=== PATIENT | male | born 1980 | race Caucasian/White ===

== ENCOUNTER → 2020-06-26 15:36 | Outpatient (BNVA) | payer MEDICAID, SELFPAY | PROVIDERS: PCP Internal Medicine; Referring Provider Internal Medicine; Visit Provider Surgery | DX: E66.01 Morbid (severe) obesity due to excess calories (principal); I10 Essential (primary) hypertension; Z68.43 Body mass index [BMI] 50.0-59.9, adult; Z98.84 Bariatric surgery status; Z71.3 Dietary counseling and surveillance | CPT/HCPCS: 99214 ==

== ENCOUNTER 2020-07-02 16:27 | Outpatient (REF) | payer MEDICAID, SELFPAY ==
[2020-07-07 11:41] LABS: Cotinine, U <2 ng/mL; Nicotine, U <2 ng/mL
== END 2020-07-02 16:28 | disposition home or self-care (01) ==
LOC: HO.LAB 16:27
PROVIDERS: PCP Internal Medicine; Visit Provider Surgery
DX: Z87.891 Personal history of nicotine dependence (principal)
CPT/HCPCS: 80323

== ENCOUNTER → 2020-07-06 15:07 | Outpatient (BNVA) | payer MEDICAID, SELFPAY | PROVIDERS: PCP Hospitalist; Referring Provider Hospitalist; Visit Provider Surgery | DX: E66.01 Morbid (severe) obesity due to excess calories (principal); Z68.43 Body mass index [BMI] 50.0-59.9, adult; Z71.3 Dietary counseling and surveillance | CPT/HCPCS: 99214 ==

== ENCOUNTER 2020-08-14 13:00 | Outpatient (RCR) | payer MEDICAID, SELFPAY ==
--- NOTE | 2020-07-10 13:59 | MHC.PT.EP ---
[facility] [place] Office [place] Office [place] Office [address] [phone] F: [phone] F: [phone] F: [phone] F: [phone] Physical Therapy Plan of Care Date of Evaluation: 07/10/20 Date of Surgery: NA Diagnosis: Other malaise: pain in unspecified knee physical deconditioning Assessment: 39 y/o male referred to PT from weight management program with 'other malaise' and 'pain in unspecified knee. He feels limited in walking on uneven terrain and ascending/descending stairs. Examination shows decreased L hip/knee strength, decreased B knee flexion AOM, decreased L HS/gastroc/quad length, noted hypmobility L medial HS soft tissue, and impaired gait pattern. Recommend PT 2x/week for 4 weeks to address impairments, implement HEP, and optimize functional mobility. Frequency and Duration: The patient will be seen 2x/week for 4 weeks Short Term Goals: 2 weeks: 1. Initiate HEP 2. Improve L hip strength to 4/5 Residential Goals: 4 weeks: 1. Pt will be able to descend stairs in step through pattern with pain < 3/10 2. I with HEP and self management of sx Treatment Plan: Modalities to reduce pain, spasms and effusion. Manual therapy to restore motion and function. Therapeutic exercise to improve strength and flexibility. Neuromuscular re-education for posture and balance. Therapeutic activities to return to functional activities of daily living. Please sign and return to therapist. Thank you for your referral.
== END 2020-10-08 09:53 | disposition other institution (70) ==
LOC: HO.PTWFD 13:00
PROVIDERS: PCP Internal Medicine; Visit Provider Surgery
DX: M25.569 Pain in unspecified knee (principal)
CPT/HCPCS: 97035; 97110; 97140; 97161; 99211

== ENCOUNTER → 2020-08-18 13:05 | Outpatient (BNVA) | payer MEDICAID, SELFPAY | PROVIDERS: PCP Internal Medicine; Visit Provider Surgery | DX: Z01.818 Encounter for other preprocedural examination (principal); E66.01 Morbid (severe) obesity due to excess calories; Z68.43 Body mass index [BMI] 50.0-59.9, adult; R06.02 Shortness of breath | CPT/HCPCS: 99212 ==

== ENCOUNTER → 2020-08-21 14:07 | Outpatient (BNVA) | payer MEDICAID, SELFPAY | PROVIDERS: PCP Internal Medicine; Visit Provider Physician Assistant | DX: Z76.89 Persons encountering health services in other specified circumstances (principal) ==

== ENCOUNTER → 2020-08-21 14:07 | Outpatient (BNVA) | payer MEDICAID, SELFPAY | PROVIDERS: PCP Internal Medicine; Visit Provider Physician Assistant ==

== ENCOUNTER → 2020-08-24 10:19 | Outpatient (REF) | payer MEDICAID, SELFPAY ==
--- NOTE | 2020-08-24 10:28 | ECG_ITS ---
Test Reason : PREOP SOB Blood Pressure : / mmHG Vent. Rate : 067 BPM Atrial Rate : 067 BPM P-R Int : 178 ms QRS Dur : 106 ms QT Int : 398 ms P-R-T Axes : 032 017 030 degrees QTc Int : 420 ms Normal sinus rhythm Normal ECG When compared with ECG of 24-JUL-2019 13:53, No significant change was found Referred By: Mckayla Arroyo Electronically Signed By:Doron Mcmullen
[2020-08-24 11:12] LABS: MANUAL DIFF FLAG NO
[2020-08-24 11:27] LABS: Basophils Percent Auto 0.5 % (0-2); Eosinophils Absolute Auto 0.2 X10*3/uL (0.0-0.4); Eosinophils Percent Auto 2.2 % (0-4); Hematocrit 45.6 % (42-52); Hemoglobin 15.2 g/dl (14.0-18.0); Imm Gran Abs Auto 0.03 X10*3/uL (0.00-0.03); Imm Gran Pct Auto 0.4 % (0.0-0.4); Lymphocytes Absolute Auto 2.5 X10*3/uL (1.2-4.9); Lymphocytes Percent Auto 29.5 % (20-40); Mean Corpuscular HGB Conc 33.3 g/dl (31.0-36.0); Mean Corpuscular Hemoglobin 32.7 pg (27.0-33.0); Mean Corpuscular Volume 98.1 fL (80-98); Mean Platelet Volume 11.2 fL (9.4-12.4); Monocytes Absolute Auto 0.8 X10*3/uL (0.1-1.2); Monocytes Percent Auto 10.1 % (2-11); Neutrophils Absolute Auto 4.8 X10*3/uL (2.0-8.3); Neutrophils Percent Auto 57.3 % (45-73); Platelet Count 253 X10*3/uL (160-400); Red Blood Count 4.65 X10*6/uL (4.60-5.80); Red Cell Distribution Width 12.8 % (11.0-16.0); White Blood Count 8.3 X10*3/uL (4.8-10.8)
[2020-08-24 11:57] LABS: Albumin Level 4.3 g/dL (3.5-5.0); Anion Gap 13 (12-20); Blood Urea Nitrogen 14 mg/dL (9-16); Calcium 8.6 mg/dL (8.4-10.2); Carbon Dioxide 26 mmol/L (22-29); Chloride 105 mmol/L (96-108); Estimated Glomerular Filt Rate > 60; Glucose Random 102 mg/dL (60-115); Potassium 4.3 mmol/l (3.3-5.1); Sodium 140 mmol/L (135-145)
[2020-08-25 14:22] LABS: Glucose Urine UA NEG (NEG); Leukocyte Esterase Urine NEG (NEG); Nitrite Urine NEG (NEG); PH 8.5 (5.0-8.0); Urine Blood NEG (NEG); Urine Ketones NEG (NEG); Urine Protein NEG (NEG-TRACE)
[2020-08-25 14:24] LABS: Appearance Urine CLEAR; Color Urine YELLOW
== END ==
LOC: HO.CARD 10:19
PROVIDERS: PCP Internal Medicine; Visit Provider Surgery
DX: Z01.818 Encounter for other preprocedural examination (principal); R06.02 Shortness of breath
CPT/HCPCS: 36415; 80048; 81003; 82040; 85025; 93005

== ENCOUNTER 2020-08-26 09:04 | Inpatient (IN) | payer MEDICAID, SELFPAY ==
[2020-08-20 14:26] VITALS: BMI 57.7
--- NOTE | 2020-08-25 09:05 | MHC.SHP ---
Pre-Procedural Eval Section B Chief Complaint: Severe Morbid Obesity Allergies: Allergies Allergy/AdvReac Type Severity Reaction Status Date / Time Seasonal allergies Allergy Unknown Itching Uncoded 08/18/20 13:21 Plan Patient has been examined and remains a candidate for the planned procedure
--- NOTE | 2020-08-25 13:04 | P.CONAN_ITS ---
Documented by User: Ruth Diallo 08/25/20 13:07 HPI - Anesthesia Eval Consult details Narrative: 39yo M for lap band removal, gastric sleeve PMFSH Past Medical History Medical History (Updated 08/26/20 @ 10:30 by Jacki Pulido) Anxiety Arthritis Depression History of smoking HTN (hypertension) Knee pain Morbid obesity with BMI of 50.0-59.9, adult Sleep apnea Family History Family History Father Lung cancer Mother No problems noted. Maternal Grandfather Colon cancer Brother No problems noted. Sister No problems noted. Surgical History Surgical History (Updated 08/20/20 @ 14:02 by Sudha Henao) History of adenoidectomy History of esophagogastroduodenoscopy (EGD) History of myringotomy Hx of tonsillectomy Status post gastric banding Social History Social History (Updated 08/26/20 @ 10:30 by Jacki Pulido) Are you a primary md do resident urgent care to a significant other at home: No Do you presently have visiting nurse or other home services: No Alcohol intake: current Alcohol intake frequency: a few times a month Alcohol type: wine Smoking Status: Former smoker Tobacco Type: Cigarette Packs Per Day: 0.75 Cigarettes Per Day: 15.0 Years Smoked: 14 Smoked in Last 30 Days: No Smoking Quit Date: 04/2020 Patient Interested in Nicotine Replacement: No Patient Given Instructions on How to Stop Smoking: No Use of substances other than those prescribed or required for medical reasons: Yes Substance Use Type: Marijuana Substance Use Frequency: Occasionally Last Used Substance: Days (ago) Have you been hit, kicked, punched, or otherwise hurt by someone within the past year? If so, by whom?: No Advance Directives: Yes Advance Directives Information Provided: Yes Advance Directives on File: No Advance Directives Date on File: 06/29/20 Recently lost weight without trying: No Meds Allergies Allergy/AdvReac Type Severity Reaction Status Date / Time Seasonal allergies Allergy Unknown Itching Uncoded 08/18/20 13:21 Home Medications Medication Instructions Recorded Confirmed Type cetirizine 10 mg capsule 10 mg PO DAILY 06/26/20 08/20/20 History cholecalciferol (vitamin D3) 50 50 mcg PO DAILY 06/26/20 08/20/20 History mcg (2,000 unit) capsule fluoxetine 20 mg capsule 20 mg PO DAILY 06/26/20 08/20/20 History oxygen-air delivery systems #1 06/26/20 History triamterene 37.5 1 cap PO DAILY 06/26/20 08/20/20 History mg-hydrochlorothiazide 25 mg capsule valsartan 80 mg tablet 80 mg PO DAILY 06/26/20 08/20/20 History Exam Exam Date and Time: August 25, 2020 1304 Height,Weight and Vital Signs: Height 6 ft 0.5 in Weight 195.952 kg Pertinent Lab Results Pertinent Lab Results: Laboratory Tests 08/24/20 08/24/20 10:32 10:32 WBC 8.3 Hgb 15.2 Hct 45.6 Plt Count 253 Sodium 140 Potassium 4.3 Chloride 105 Carbon Dioxide 26 BUN 14 Creatinine 0.74 Calcium 8.6 Albumin 4.3 Narrative Narrative: EKG 08/24/20: [id number] Assessment and Plan Assessment Anesthesia Assessment: Chart Reviewed Documented by User: Jacki Pulido 08/26/20 10:33 [facility] Past Medical History Medical History (Updated 08/26/20 @ 10:30 by Jacki Pulido) Anxiety Arthritis Depression History of smoking HTN (hypertension) Knee pain Morbid obesity with BMI of 50.0-59.9, adult Sleep apnea Family History Family History Father Lung cancer Mother No problems noted. Maternal Grandfather Colon cancer Brother No problems noted. Sister No problems noted. Family history of problems with anesthesia: No Surgical History Surgical History (Updated 08/20/20 @ 14:02 by Sudha Henao) History of adenoidectomy History of esophagogastroduodenoscopy (EGD) History of myringotomy Hx of tonsillectomy Status post gastric banding History of Problems with Anesthesia: No Social History Social History (Updated 08/26/20 @ 10:30 by Jacki Pulido) Are you a primary md do resident urgent care to a significant other at home: No Do you presently have visiting nurse or other home services: No Alcohol intake: current Alcohol intake frequency: a few times a month Alcohol type: wine Smoking Status: Former smoker Tobacco Type: Cigarette Packs Per Day: 0.75 Cigarettes Per Day: 15.0 Years Smoked: 14 Smoked in Last 30 Days: No Smoking Quit Date: 04/2020 Patient Interested in Nicotine Replacement: No Patient Given Instructions on How to Stop Smoking: No Use of substances other than those prescribed or required for medical reasons: Yes Substance Use Type: Marijuana Substance Use Frequency: Occasionally Last Used Substance: Days (ago) Have you been hit, kicked, punched, or otherwise hurt by someone within the past year? If so, by whom?: No Advance Directives: Yes Advance Directives Information Provided: Yes Advance Directives on File: No Advance Directives Date on File: 06/29/20 Recently lost weight without trying: No Meds Allergies Allergy/AdvReac Type Severity Reaction Status Date / Time Seasonal allergies Allergy Unknown Itching Uncoded 08/18/20 13:21 Home Medications Medication Instructions Recorded Confirmed Type cetirizine 10 mg capsule 10 mg PO DAILY 06/26/20 08/20/20 History cholecalciferol (vitamin D3) 50 50 mcg PO DAILY 06/26/20 08/20/20 History mcg (2,000 unit) capsule fluoxetine 20 mg capsule 20 mg PO DAILY 06/26/20 08/20/20 History oxygen-air delivery systems #1 06/26/20 History triamterene 37.5 1 cap PO DAILY 06/26/20 08/20/20 History mg-hydrochlorothiazide 25 mg capsule valsartan 80 mg tablet 80 mg PO DAILY 06/26/20 08/20/20 History Exam Pertinent Lab Results Pertinent Lab Results: Laboratory Last Values COVID-19 (LAI) Negative (Negative) 08/26/20 09:00 COVID-19 Clin Com See Note 08/26/20 09:00 Airway Mallampati Class: III TM Dist: >3cm Neck ROM: Full (Short fat neck) Loose/Missing/Broken Teeth: Yes (Missing back) Heart: RRR Lungs: CTAB Assessment and Plan Assessment Anesthesia Assessment: Anesthesia Plan Discussed and Chart Reviewed Final Anesthetic Review NPO: Yes ASA Class: III Final Preanesthetic Review: No Changes in Pt Med Stat, Meds/Allgs Chart Reviewed, Consent Obtained/Reviewed and Anes Risks/Benef Reviewed Patient Risk: Intermediate Procedure Risk: Intermediate Assessment/Block/Sedation in SS: Assess/Block/Sedation-SS Anesthetic Plan Anesthetic Plan: GA Disposition: Extended PACU
[2020-08-26] VITALS (14 sets, daily range): BP systolic 118–171; BP diastolic 57–95; PULSE 60–87; RESP 14–22; TEMP 36.2–36.5; O2SAT 93–99
[2020-08-26 09:27] LABS: COVID-19 Test Negative (Negative); IDNOW Serial# 9DD0AD1C
--- NOTE | 2020-08-26 13:13 | P.BOP_ITS ---
Brief Operative Note Date of Service: 08/26/20 Pre-op diagnosis: Morbid obesity, BMI 57.9, hypertension, and sleep apnea Post-op diagnosis: other (Same, presence of gastric band, and hiatal hernia) Procedure: Laparoscopic removal of gastric band, conversion to sleeve gastrectomy, hiatal hernia repair, Thony block, intraoperative endoscopy Implants: None Surgeon: Mckayla Arroyo MD Anesthesia: GETA Tile Setter Supervisor: Nae Melendez Estimated blood loss (mL): 20 Pathology: other (Partial gastrectomy) Condition: stable Disposition: PACU
--- NOTE | 2020-08-26 13:15 | P.OP_ITS ---
Operative Note Operative Note Date of Service: 08/26/20 Narrative: Patient was brought into the operating room and placed on the operating room table in the supine position. General anesthesia was induced. Normal DVT prophylaxis was instituted and the patient received 2 grams of cefotetan preoperatively. The abdomen was then prepped and draped in the normal sterile fashion. A safety time-out was performed. A mixture of 1% lidocaine with epinephrine and ?% Marcaine plain was used to an esthetize the planned incision site in the left upper quadrant. A #11 scalpel was used to make a 5 mm left upper quadrant transverse incision through which a veress needle was placed. Three pops were heard going through the fascia. A saline drop test was used to confirm that the veress needle was intraabdominal. An optiview technique was then used to place a 5mm port in the left upper quadrant. A 5 mm 30 degree laproscope was then placed through this port and the abdominal cavity was surveyed and was normal with the exception of the presence of a gastric band. The patient was placed in reverse Trendelenburg positioning. A fernanda liver retractor was then placed in the subxyphoid position and it was used to hold up the left lobe of the liver to the abdominal wall. This was secured to the bed using the liver retractor bang. A RUMA block was then performed for pain control on the right side of the abdomen. A 5 mm port was placed in the right upper quadrant near the falciform ligament. A 15 mm port was then placed in the mid epigastrium adjacent to the subcutaneous port that was palpated on the abdominal wall. One additional 5 mm port was placed in the left upper quadrant just to the left of the placement of the first port. I then performed a RUMA block on the left side of the abdomen. We took down the adhesions of the epigastric fat pad to the overlying left lobe of liver. We then used the hook cautery to take down the adhesions overlying the Realize gastric band. We cut the tubing on the gastric band and then cut the buckle on the gastric band and removed it from its tunnel. We moved the gastric band through the 15 mm port site. We then opened the fundoplication by dividing the capsule using the LigaSure device. This allowed the stomach to lie flat once the tunnel had been completely dissected free. I then removed the epigastric fat pad; there was an anterior hiatal hernia noted that was about 3 cm in size. I reapproximated the left and right crura with a total of 2 stitches of 2-0 ethibond and a laparoscopic knot pusher. There was no residual hiatal hernia. I then opened up the angle of His. We then gained entry into the lesser sac about 4-5 cm from the pylorus. I had anesthesia place a 34 Cambodian orogastric tube into the distal antrum to use as a sizing tool for gastric pouch size. I divided the short gastric vessels up to the angle of His. We then started the creation of the gastric pouch by firing a 60 mm purple load endostapler up the stomach about 4-5 cm from the pylorus. We completed the creation of the gastric pouch using a total of 5 firings of a 60 mm in 2 firings of a 45 mm purple load stapler. We had anesthesia remove the orogastric tube, then we clamped across the distal antrum using a fired 60 mm endostapler. We flattened the patient and then instilled normal saline surrounding the newly created staple line. I then performed an on-table endoscopy. I passed the gastroscopy into the posterior oropharynx and down the esophagus evaluating the esophageal mucosa which was normal. There was no evidence of hiatal hernia. I passed the gastroscope into the gastric pouch and insufflated the gastric pouch. There was healthy pink mu cosa and no evidence of active bleeding. There was no evidence of leak on laparoscopy. I desufflated the gastric pouch and removed the endoscope. I removed the endostapler from the abdomen and suctioned the fluid from the left upper quadrant. I then removed the partial gastrectomy specimen through the epigastric 15 mm port site. I then removed the subcutaneous port in the residual tubing from the abdomen at the 15 mm port site after lengthening the 15 mm port site. I reapproximated the 15 mm port using a 0 maxon suture with a laparoscopic suture passer. I instilled local anesthetic into the fascial closure site and tied the suture down at a pressure of 8-10 mm of Hg. There was no residual fascial defect. We removed the liver retractor and the left upper quadrant 5 mm ports under direct visualization. There was no evidence of any active bleeding. I desufflated the abdomen through the last remaining port and removed the laparoscope and 5 mm port. We reapproximated all incisions with a 4-0 monocryl subcuticular stitch. We cleaned and dried the abdominal skin and applied dermabond skin glue. All count were correct at the end of the case. The patient was awake and in stable condition prior to extubation and transfer to the recovery room.
[2020-08-26] MEDS: Famotidine/PF 20 MG/2 ML VIAL IVPUSH (13:35)
[2020-08-26] MEDS: fentaNYL citrate/PF 100 MCG/2 ML VIAL 50 MCG IVPUSH ×2 (13:40→13:45)
[2020-08-26] MEDS: Lactated Ringers 1,000 ML 125 ML IVCONT (15:47)
[2020-08-26 15:54] LABS: Basophils Absolute Auto 0.1 X10*3/uL (0.0-0.2); Basophils Percent Auto 0.3 % (0-2); Eosinophils Percent Auto 0.1 % (0-4); Hematocrit 44.3 % (42-52); Hemoglobin 15.2 g/dl (14.0-18.0); Imm Gran Abs Auto 0.14 X10*3/uL (0.00-0.03); Imm Gran Pct Auto 0.7 % (0.0-0.4); Lymphocytes Absolute Auto 1.2 X10*3/uL (1.2-4.9); Lymphocytes Percent Auto 6.3 % (20-40); MANUAL DIFF FLAG SCAN; Mean Corpuscular HGB Conc 34.3 g/dl (31.0-36.0); Mean Corpuscular Hemoglobin 33.5 pg (27.0-33.0); Mean Corpuscular Volume 97.6 fL (80-98); Mean Platelet Volume 11.1 fL (9.4-12.4); Monocytes Absolute Auto 0.3 X10*3/uL (0.1-1.2); Monocytes Percent Auto 1.4 % (2-11); Neutrophils Absolute Auto 17.1 X10*3/uL (2.0-8.3); Neutrophils Percent Auto 91.2 % (45-73); Platelet Count 265 X10*3/uL (160-400); Red Blood Count 4.54 X10*6/uL (4.60-5.80); Red Cell Distribution Width 12.6 % (11.0-16.0); SCAN SMEAR FLAG 1; White Blood Count 18.8 X10*3/uL (4.8-10.8)
[2020-08-26 16:16] LABS: SLIDE REVIEW VERIFIED
[2020-08-26 16:18] LABS: Anion Gap 15 (12-20); Blood Urea Nitrogen 14 mg/dL (9-16); Calcium 8.6 mg/dL (8.4-10.2); Carbon Dioxide 23 mmol/L (22-29); Chloride 101 mmol/L (96-108); Creatinine Clr Calc Pharmacy 159.2; Estimated Glomerular Filt Rate > 60; Glucose Random 135 mg/dL (60-115); Potassium 4.2 mmol/l (3.3-5.1); Sodium 135 mmol/L (135-145)
[2020-08-27 00:46] VITALS: BP 159/74; PULSE 50; RESP 16; TEMP 37.3; O2SAT 93
[2020-08-27] MEDS: Lactated Ringers 1,000 ML 125 ML IVCONT ×2 (01:16→08:28)
[2020-08-27] MEDS: diphenhydrAMINE HCL 50 MG/ML VIAL 25 MG IVPUSH (03:58)
[2020-08-27 04:05] VITALS: BP 153/65; PULSE 54; RESP 16; TEMP 36.9; O2SAT 95
[2020-08-27 04:09] LABS: Basophils Percent Auto 0.2 % (0-2); Eosinophils Percent Auto 0.1 % (0-4); Hematocrit 41.7 % (42-52); Hemoglobin 14.6 g/dl (14.0-18.0); Imm Gran Abs Auto 0.08 X10*3/uL (0.00-0.03); Imm Gran Pct Auto 0.5 % (0.0-0.4); Lymphocytes Absolute Auto 2.1 X10*3/uL (1.2-4.9); Lymphocytes Percent Auto 12.1 % (20-40); Mean Platelet Volume 10.6 fL (9.4-12.4); Monocytes Absolute Auto 1.1 X10*3/uL (0.1-1.2); Monocytes Percent Auto 6.6 % (2-11); Neutrophils Absolute Auto 13.6 X10*3/uL (2.0-8.3); Neutrophils Percent Auto 80.5 % (45-73); Platelet Count 265 X10*3/uL (160-400); Red Cell Distribution Width 12.4 % (11.0-16.0); White Blood Count 16.9 X10*3/uL (4.8-10.8)
[2020-08-27 04:11] LABS: MANUAL DIFF FLAG NO
[2020-08-27 04:36] LABS: Anion Gap 16 (12-20); Blood Urea Nitrogen 11 mg/dL (9-16); Calcium 8.7 mg/dL (8.4-10.2); Carbon Dioxide 22 mmol/L (22-29); Chloride 101 mmol/L (96-108); Creatinine Clr Calc Pharmacy 216.9; Estimated Glomerular Filt Rate > 60; Glucose Random 110 mg/dL (60-115); Potassium 4.3 mmol/l (3.3-5.1); Sodium 135 mmol/L (135-145)
[2020-08-27 07:46] VITALS: BP 162/86; PULSE 50; RESP 18; TEMP 37.1; O2SAT 94
[2020-08-27] MEDS: FLUoxetine HCl 20 MG CAPSULE PO (08:35)
[2020-08-27 08:40] VITALS: BP 146/76
--- NOTE | 2020-08-27 09:39 | MHC.CM.PN ---
pt lives c his mother and sister in their home. he reports he is independent in his care. he drives a car and works a job. pt will have family provide transportation at dc. pt denies the need for vna at dc. dc plan is for patient to go home c family no svcs. cm to cont . to follow.
--- NOTE | 2020-08-27 09:42 | PM.PNGS ---
Subjective Subjective Date of Service: 08/27/20 Patient reports: tolerating liquids well Interval history: Has had 2 oz protein shake, tolerating liquids well. Some gas pain, occasional incisional tenderness, no nausea. Ambulating and using incentive spirometer. Physical Exam Vital Signs: Vital Signs: Last Vital Signs Temp 98.8 F 08/27/20 07:46 Pulse 50 08/27/20 07:46 Resp 18 08/27/20 07:46 BP 146/76 H 08/27/20 08:40 Pulse Ox 94 08/27/20 07:46 Body Mass Index 57.7 Const: General: cooperative, comfortable, no acute distress, alert and awake Nutritional Appearance: obese GI: Inspection: Yes normal to inspection, Yes incision (normal, slight erythema at site of surgical glue, no tenderness/warmth/drai) and Yes obesity Extrem: Right lower extremity: lower leg Details: no tenderness; no edema Left lower extremity: lower leg Details: no tenderness; no edema Progress Note: A&P Assessment and plan (1) Morbid obesity with BMI of 50.0-59.9, adult: Status: Acute (2) Body mass index (BMI) of 50-59.9 in adult: Status: Acute (3) Intestinal malabsorption following gastrectomy: Status: Acute (4) S/P laparoscopic sleeve gastrectomy: Status: Acute (5) History of removal of laparoscopic gastric banding device: Status: Acute Assessment and Plan: Will discharge home on phase 3, to have 2 Sobia 4:1 w/ Fairlife milk and 2 EnsureMax, goal 120-150g/day protein. 64 oz total liquids daily. Continue ambulating and using incentive spirometer, all other instructions in discharge instructions. Fall Risk Details Current Medications: Current Medications Generic Name Dose Route Start Last Admin Trade Name Freq PRN Reason Stop Dose Admin Fluoxetine HCl 20 mg 08/27/20 09:00 08/27/20 08:35 Fluoxetine Hcl 20 Mg Capsule PO 20 mg DAILY [place] Administration Hydralazine HCl 10 mg 08/26/20 16:32 Hydralazine Hcl 20 Mg/Ml Vial IVPUSH Q4H PRN SBP >150 Acetaminophen 1,000 mg in 100 mls @ 16.7 mls/hr 08/26/20 15:45 08/27/20 08:35 Ofirmev IV 08/29/20 15:36 16.7 mls/hr .Q6H [place] Administration Lactated Ringer's 1,000 mls @ 125 mls/hr 08/26/20 15:45 08/27/20 08:28 Lr IVCONT 125 mls/hr .Q8H [place] Administration Time Spent With Patient Time: Total time spent is greater than 50% in coordination of care (as documented) at patient's floor/unit and/or counseling patient: Time with patient: 15 - 24 minutes
--- NOTE | 2020-08-27 11:10 | HO.POSTANES ---
Post Anesthesia Evaluation Post Anesthesia Evaluation Vital Signs: Vital Signs Temp Pulse Resp BP Pulse Ox 08/27/20 08:40 146/76 H 08/27/20 07:46 98.8 F 50 18 162/86 H 94 08/27/20 04:05 98.4 F 54 16 153/65 H 95 08/27/20 00:46 99.2 F 50 16 159/74 H 93 Anesthesia: General Endotracheal-GETA Mental Status: Awake Pain Control: Satisfactory Nausea/Vomiting: None Hydration: Adequate Anesthesia-Related Issues: No Anes. Related Issues
--- NOTE | 2020-09-02 15:50 | PM.DS ---
DS: Providers Provider Date of admission: 08/26/20 09:04 Primary care physician: Raymond Rodney MD DS: Diagnosis Discharge Diagnosis (1) Morbid obesity with BMI of 50.0-59.9, adult: Status: Acute (2) Body mass index (BMI) of 50-59.9 in adult: Status: Acute (3) Intestinal malabsorption following gastrectomy: Status: Acute (4) S/P laparoscopic sleeve gastrectomy: Status: Acute (5) History of removal of laparoscopic gastric banding device: Status: Acute DS: Medications Discharge Medications Home Medications: Home Medications Medication Instructions Recorded Confirmed cetirizine 10 mg capsule 10 mg PO DAILY 06/26/20 08/20/20 fluoxetine 20 mg capsule 20 mg PO DAILY 06/26/20 08/20/20 oxygen-air delivery systems #1 06/26/20 triamterene 37.5 1 cap PO DAILY 06/26/20 08/20/20 mg-hydrochlorothiazide 25 mg capsule valsartan 80 mg tablet 80 mg PO DAILY 06/26/20 08/20/20 Previous Rx's Medication Instructions Recorded acetaminophen 500 mg tablet 1,000 mg PO Q6H PRN #30 tab 08/24/20 docusate sodium 100 mg capsule 100 mg PO BID #30 cap 08/24/20 famotidine 20 mg tablet 20 mg PO DAILY #30 tab 08/24/20 ondansetron HCl 4 mg tablet 4 mg PO Q6H PRN #30 tab 08/24/20 simethicone 80 mg chewable tablet 80 mg PO TID-QID PRN #30 tab 08/24/20 DS: Summary Time Spent with Patient Time attestation: Total time spent providing and/or coordinating discharge services: Physical Exam Vital Signs: Vital Signs: Last Vital Signs Temp 98.8 F 08/27/20 07:46 Pulse 50 08/27/20 07:46 Resp 18 08/27/20 07:46 BP 146/76 H 08/27/20 08:40 Pulse Ox 94 08/27/20 07:46 Body Mass Index 57.7 DS: Data Data Completed and Pending Completed studies during hospitalization [Text1]: Procedures Excision of Stomach, Percutaneous Endoscopic Approach, Vertical (08/26/20) Removal of Extraluminal Device from Stomach, Percutaneous Endoscopic Approach (08/26/20) Repair Diaphragm, Percutaneous Endoscopic Approach (08/26/20) Labs on day of discharge: 08/26/20 08:45 Acetaminophen [Ofirmev] 1,000 mg in 100 ml IV PREOP Albuterol Sulfate (0.083%) [Ventolin (0.083%)] 2.5 mg INHALE ONCE PRN cefoTEtan disod/Dextrose,Iso [Cefotan] 2 gm in 50 ml IV PREOP 08/26/20 09:00 COVID-19 ID NOW (Smith) Stat 08/26/20 09:34 Type and Screen Stat 08/26/20 09:37 Ketamine HCl/NS 50 mg IVPUSH .STK-MED ONE Lidocaine HCl 2 % MPF [Xylocaine 2 % MPF] 5 ml .ROUTE .STK-MED ONE Midazolam HCl/PF [Versed] 2 mg .ROUTE .STK-MED ONE Rocuronium [place] [Zemuron] 100 mg IV .STK-MED ONE fentaNYL citrate/PF [Sublimaze] 50 mcg .ROUTE .STK-MED ONE propofoL [Diprivan] 200 mg IVPUSH .STK-MED ONE 08/26/20 09:39 cefoTEtan disodium [Cefotan] 2 gm .ROUTE .STK-MED ONE 08/26/20 10:10 Bupivacaine MPF 0.25 % [Sensorcaine-MPF 0.25% 10 ML] 10 ml .ROUTE .STK-MED ONE Lidocaine HCl 1%/Epi 1:100,000 [Xylocaine 1 %-Epi 1:100,000] 20 ml .ROUTE .STK-MED ONE 08/26/20 10:42 propofoL [Diprivan] 200 mg IVPUSH .STK-MED ONE 08/26/20 10:45 0.9 % Sodium Chloride [Ns] 1,000 ml IVCONT 100 mls/hr 08/26/20 10:50 HYDROmorphone HCl [Dilaudid] 0.25 mg IVPUSH Q5M PRN fentaNYL citrate/PF [Sublimaze] 50 mcg IVPUSH Q5M PRN ondansetron HCL [Zofran] 4 mg IVPUSH ONCE PRN 08/26/20 10:58 dexAMETHasone sod phosphate [Decadron] 4 mg .ROUTE .STK-MED ONE ondansetron HCL [Zofran] 4 mg .ROUTE .STK-MED ONE 08/26/20 11:31 HYDROmorphone HCl [Dilaudid] 2 mg .ROUTE .STK-MED ONE 08/26/20 12:52 Sugammadex Sodium [Bridion] 200 mg IVPUSH .STK-MED ONE 08/26/20 13:10 Transfer Order Routine 08/26/20 13:12 Ambulate Q4H WHILE AWAKE Compression Therapy QSHIFT Head of bed elevation DIRECTED Incentive Spirometry Q1HR WHILE AWAKE Intake and Output Q4HR Code Status Routine HYDROmorphone HCl [Dilaudid] 0.25 mg IVPUSH Q4H PRN Metoclopramide HCl [Reglan] 10 mg IVPUSH Q6H PRN 08/26/20 13:13 Vital Signs Q4H 08/26/20 13:15 ondansetron HCL [Zofran] 4 mg IVPUSH Q8H 08/26/20 13:30 Famotidine/PF [Pepcid/PF] 20 mg IVPUSH BID 08/26/20 13:34 Famotidine/PF [Pepcid/PF] 20 mg IVPUSH .STK-MED ONE 08/26/20 13:40 fentaNYL citrate/PF [Sublimaze] 100 mcg .ROUTE .STK-MED ONE 08/26/20 15:23 Basic Metabolic Panel DAILY@0500 Complete Blood Count Auto Diff DAILY@0500 SLIDE REVIEW Routine 08/26/20 Lunch Bariatric Phase 2 Diet Acetaminophen [Ofirmev] 1,000 mg in 100 ml IV 16.7 mls/hr Lactated Ringers [Lr] 1,000 ml IVCONT 125 mls/hr 08/26/20 16:00 0.9 % Sodium Chloride Flush [NS Flush] 3 ml IVFLUSH QSHIFT 08/26/20 16:32 hydrALAZINE HCl [Apresoline] 10 mg IVPUSH Q4H PRN 08/26/20 18:00 Acetaminophen [Ofirmev] 1,000 mg in 100 ml IV 16.7 mls/hr 08/26/20 21:11 cefoTEtan disodium [Cefotan] 2 gm .ROUTE .STK-MED ONE 08/26/20 22:00 cefoTEtan disodium [Cefotan] 2 gm 0.9 % Sodium Chloride [Ns] 100 ml IV ONCE@2200 12/17/20 03:33 diphenhydrAMINE HCL [Benadryl] 25 mg IVPUSH ONCE ONE 08/27/20 03:58 Basic Metabolic Panel DAILY@0500 Complete Blood Count Auto Diff DAILY@0500 08/27/20 09:00 FLUoxetine HCl [Prozac] 20 mg PO DAILY Valsartan [Diovan] 80 mg PO DAILY Laboratory Last Values WBC 16.9 X10*3/uL (4.8-10.8) H 08/27/20 03:58 RBC 4.30 X10*6/uL (4.60-5.80) L 08/27/20 03:58 Hgb 14.6 g/dl (14.0-18.0) 08/27/20 03:58 Hct 41.7 % (42-52) L 08/27/20 03:58 MCV 97.0 fL (80-98) 08/27/20 03:58 MCH 34.0 pg (27.0-33.0) H 08/27/20 03:58 MCHC 35.0 g/dl (31.0-36.0) 08/27/20 03:58 RDW 12.4 % (11.0-16.0) 08/27/20 03:58 Plt Count 265 X10*3/uL (160-400) 08/27/20 03:58 MPV 10.6 fL (9.4-12.4) 08/27/20 03:58 Immature Gran % (Auto) 0.5 % (0.0-0.4) H 08/27/20 03:58 Neut % (Auto) 80.5 % (45-73) H 08/27/20 03:58 Lymph % (Auto) 12.1 % (20-40) L 08/27/20 03:58 [place] % (Auto) 6.6 % (2-11) 08/27/20 03:58 Eos % (Auto) 0.1 % (0-4) 08/27/20 03:58 Baso % (Auto) 0.2 % (0-2) 08/27/20 03:58 Lymph # (Auto) 2.1 X10*3/uL (1.2-4.9) 08/27/20 03:58 [place] # (Auto) 1.1 X10*3/uL (0.1-1.2) 08/27/20 03:58 Eos # (Auto) 0.0 X10*3/uL (0.0-0.4) 08/27/20 03:58 Baso # (Auto) 0.0 X10*3/uL (0.0-0.2) 08/27/20 03:58 Abs Immat Gran (auto) 0.08 X10*3/uL (0.00-0.03) H 08/27/20 03:58 Absolute Neuts (auto) 13.6 X10*3/uL (2.0-8.3) H 08/27/20 03:58 Absolute Nucleated RBC 0.000 X10*3/uL (0.0-0.012) 08/27/20 03:58 Nucleated RBC % (auto) 0.0 /100WBC (0.0-0.2) 08/27/20 03:58 Smear Tech's Comments VERIFIED 08/26/20 15:23 Sodium 135 mmol/L (135-145) 08/27/20 03:58 Potassium 4.3 mmol/l (3.3-5.1) 08/27/20 03:58 Chloride 101 mmol/L (96-108) 08/27/20 03:58 Carbon Dioxide 22 mmol/L (22-29) 08/27/20 03:58 Anion Gap 16 (12-20) 08/27/20 03:58 BUN 11 mg/dL (9-16) 08/27/20 03:58 Creatinine 0.80 mg/dL (0.5-1.4) 08/27/20 03:58 Estim Creat Clear Calc 216.9 08/27/20 03:58 Estimated GFR > 60 08/27/20 03:58 Random Glucose 110 mg/dL (60-115) 08/27/20 03:58 Calcium 8.7 mg/dL (8.4-10.2) 08/27/20 03:58 COVID-19 ([facility]) Negative (Negative) 08/26/20 09:00 COVID-19 Clin Com See Note 08/26/20 09:00 Blood Type O Negative 08/26/20 09:34 Antibody Screen NEGATIVE 08/26/20 09:34 Discharge Plan Discharge Anticipated Discharge Date/Time: 08/27/20 11:18 Patient Disposition: Home, Self-Care Referrals: Raymond Rodney MD [Primary Care Provider] - Discharge Medications: Continued fluoxetine 20 mg capsule 20 mg PO DAILY RF: 0 triamterene-hydrochlorothiazid 37.5-25 mg capsule 1 cap PO DAILY RF: 0 valsartan 80 mg tablet 80 mg PO DAILY RF: 0 Zyrtec 10 mg capsule 10 mg PO DAILY RF: 0 acetaminophen [Tylenol Extra Strength] 500 mg tablet 1,000 mg PO Q6H PRN (Reason: pain) Qty: 30 RF: 1 famotidine [Pepcid AC] 20 mg tablet 20 mg PO DAILY Qty: 30 RF: 1 simethicone [Gas Relief (simethicone)] 80 mg tablet,chewable 80 mg PO TID-QID PRN (Reason: abdominal distention) Qty: 30 RF: 1 ondansetron HCl [Zofran] 4 mg tablet 4 mg PO Q6H PRN (Reason: nausea and vomiting) Qty: 30 RF: 1 docusate sodium [Colace] 100 mg capsule 100 mg PO BID Qty: 30 RF: 1 Discontinued cholecalciferol (vitamin D3) 50 mcg (2,000 unit) capsule 50 mcg PO DAILY RF: 0 No Action (DME) oxygen-air delivery systems Device See Rx Instructions .ROUTE .MEDSUPPLY Qty: 1 RF: 0 Discharge Orders: Discharge Order (Routine); Ordered 08/27/20 Ordered By: Mckayla Arroyo Diet: other Activity on Discharge: No heavy lifting Discharge Date/Time: 08/27/20 11:45 Activity Restrictions/Additional Instructions: No tub baths, sex or returning to work until discussed at first post op appointment. No exercise, alcohol, tobacco or illegal drug use. Continue to use incentive spirometer hourly while awake. Walk in home for 5- 10 minutes every 2 hours during the first week. Continue phase 3 diet until first post op appointment. Follow all instructions in the bariatric handbook and call with any questions.Discharge Instructions (discussed needing 2 Sobia 4:1 in [employer] and 2 EnsureMax, needs at least 120g/day protein, and geet 64 oz/day fluids) 1. Please call your doctor or come back to the emergency room should any new symptoms arise. 2. You will receive a courtesy call from [facility] 24-48 hours after discharge. 3. Activity: abstain from alcohol, practice limited stair climbing, no bending, no driving, no exercise, no illicit substances, no lifting, no sex, no tub bath, no work. 4. Diet: continue stage 3 protein shakes until your [address] Arrooy. 5. Dressing Change/Wound Care: Your incision is covered by surgical glue. If the area is tender, you may apply an ice pack for short intervals (no more than 20 minutes on, followed by at least 20 minutes off). Do not apply heat. Do not use creams, lotions, or topical antibiotics unless instructed to do so by your surgeon. These can cause infection or allergic reaction. 6. Call your doctor if: - Your temperature exceeds 101.5 F - You experience excessive pain or swelling - You have an unexpected reaction to medication - You have excessive bleeding - You experience continued vomiting/nausea - Your incision begins to separate - Your incision shows signs of infection such as increased redness, swelling, excessive pain, heat, or drainage (light blood or clear fluid is normal) 7. General instructions: No lifting greater than 5 lbs for the next 4 [address] within 24 hours of taking narcotic pain medications. If you do not move your bowels in the next 2 days, please take milk of magnesia over the counter. Please follow the post op diet and do not advance your diet until you are seen in the office in about 2 weeks. Please walk around your home every hour or two to prevent blood clots from forming in your legs. You do not need to wake from sleeping to walk. Please sleep in a bed or couch to prevent kinking at the hips and knees. Please take your incentive spirometer (your lung allergy physician) home with you and use it for the next few days to prevent pneumonias. You may shower, no hot tubs, baths or swimming pools. Please call the office with any questions or concerns such as increasing abdominal pain, fever, chills, shortness of breath, chest pain, leg pain or swelling, or redness or drainage from your incisions. Please stay on stage 3 diet which includes sugar free clear liquids such as ice pops and jello and broth and crystal light. Avoid all carbonation. Please drink 3 protein shakes with at least 25-30 grams of protein daily or 3 of the Celebrate 4:1 shakes which can be purchased in our office. The Celebrate shakes have all of the bariatric vitamins you need if you consume these shakes. If you are drinking other protein shakes, you will need to purchase the Celebrate multivitamins and calcium that we provide in the office (they will provide all the vitamins you need). Please make sure you are consuming at least 40-60 ounces of water in addition to your 3 protein shakes daily. Do not hesitate to contact the office with any questions at . DATE OF SERVICE: August 26, 2020 ADMITTING DIAGNOSES: morbid obesity, gastric band malfunction DISCHARGE DIAGNOSES: same with hiatal hernia PROCEDURE PERFORMED: removal of gastric band and components, laparoscopic sleeve gastrectomy and hiatal hernia repair DISCHARGE MEDICATIONS: 1. Simethicone 80mg q4h prn gas 2. Ondansetron 4mg po tid prn nausea 3. Famotidine 20mg po bid 4. Docusate sodium 100mg po bid DISCHARGE INSTRUCTIONS: The patient should continue on the stage III bariatric diet, which includes 3 protein shakes of at least 20- 30g of protein on a daily basis. The patient was encouraged to avoid drinking liquids with her protein shakes. She should wait 30-45 minutes in between her meals and drinking water. She should drink at least 40-60 ounces of water on a daily basis. She should ambulate while at home to avoid any blood clots in her lower extremities. She should call with any questions or concerns such as increase in abdominal pain, persistent nausea, vomiting, redness and drainage from her incisions, fever, chills, shortness of breast, or chest pain beyond what is normal for her. The patient should avoid all heavy lifting greater than 5 pounds for the next 4 weeks. The patient is already scheduled to follow up with me in 2 weeks' time, but should call the office with any questions prior to that follow up appointment. The patient should not advance her diet until she is seen in the office for the 2 week appointment. HOSPITAL COURSE: The patient was admitted after undergoing laparoscopic sleeve gastrectomy. She was started on stage II diet and was tolerating well without nausea or vomiting. Her pain was controlled on IV Dilaudid. All labs were within normal limits. On post-operative day #2 she was feeling better, nausea and epigastric pain improved and she was tolerating stage III bariatric diet well. She was discharged home. DISCHARGE DISPOSITION: Home. Visit Report Forms: Patient Portal Discharge page Care Plan Goals: weight loss Health Concerns: morbid obesity Plan of Treatment: see discharge instructions
== END 2020-08-27 11:45 | disposition home or self-care (01) | DRG 403 ==
LOC: HO.SSSA 13:22 → HO.S3 14:27
PROVIDERS: Physician Assistant; Admitting Provider Surgery; PCP Internal Medicine; Visit Provider Nuclear Medicine
PROC: (CPT 43845; principal; 2020-08-26 09:50)
PROC: (CPT 43774; 2020-08-26 09:50)
DX: E66.01 Morbid (severe) obesity due to excess calories (principal); F17.210 Nicotine dependence, cigarettes, uncomplicated; G47.30 Sleep apnea, unspecified; I10 Essential (primary) hypertension; Z20.828 Contact with and (suspected) exposure to other viral communicable diseases; Z68.43 Body mass index [BMI] 50.0-59.9, adult; Z99.89 Dependence on other enabling machines and devices; Z71.6 Tobacco abuse counseling; Z79.899 Other long term (current) drug therapy
CPT/HCPCS: 43774; 43775; 43235; 36415; 80048; 85025; 86850; 86900; 86901; 87635; 88307; 88342; C1776; J0131; J1100; J1170; J1200; J2250; J2405; J3010

== ENCOUNTER → 2020-09-10 14:25 | Outpatient (BNVA) | payer MEDICAID, SELFPAY | PROVIDERS: PCP Internal Medicine; Visit Provider Surgery | DX: E66.01 Morbid (severe) obesity due to excess calories (principal); Z68.42 Body mass index [BMI] 45.0-49.9, adult; Z98.890 Other specified postprocedural states; Z87.19 Personal history of other diseases of the digestive system; Z98.84 Bariatric surgery status | CPT/HCPCS: 99212 ==

== ENCOUNTER → 2020-09-24 14:19 | Outpatient (BNVA) | payer MEDICAID, SELFPAY | PROVIDERS: PCP Internal Medicine; Visit Provider Physician Assistant | DX: E66.01 Morbid (severe) obesity due to excess calories (principal); Z68.43 Body mass index [BMI] 50.0-59.9, adult; Z98.84 Bariatric surgery status | CPT/HCPCS: 99212 ==

== ENCOUNTER → 2020-11-05 15:20 | Outpatient (BNVA) | payer MEDICAID, SELFPAY | PROVIDERS: PCP Internal Medicine; Visit Provider Physician Assistant | DX: Z13.89 Encounter for screening for other disorder (principal) | CPT/HCPCS: 99212 ==

== ENCOUNTER → 2020-12-08 14:21 | Outpatient (BNVA) | payer MEDICAID, SELFPAY | PROVIDERS: PCP Internal Medicine; Visit Provider Surgery | DX: E66.01 Morbid (severe) obesity due to excess calories (principal); Z68.43 Body mass index [BMI] 50.0-59.9, adult; Z98.84 Bariatric surgery status | CPT/HCPCS: 99212 ==

== ENCOUNTER → 2021-03-22 13:59 | Outpatient (BNVA) | payer MEDICAID, SELFPAY | PROVIDERS: PCP Internal Medicine; Visit Provider Surgery | DX: E66.01 Morbid (severe) obesity due to excess calories (principal); K91.2 Postsurgical malabsorption, not elsewhere classified; Z68.41 Body mass index [BMI] 40.0-44.9, adult; Z98.84 Bariatric surgery status; Z90.3 Acquired absence of stomach [part of] | CPT/HCPCS: 99212 ==

== ENCOUNTER → 2021-06-07 09:22 | Outpatient (BNVA) | payer MEDICAID, SELFPAY | PROVIDERS: PCP Internal Medicine; Visit Provider Surgery | DX: E66.9 Obesity, unspecified (principal); Z68.38 Body mass index [BMI] 38.0-38.9, adult; Z98.84 Bariatric surgery status | CPT/HCPCS: 99212 ==